=== PATIENT | female | born 1960 | race Caucasian/White ===

== ENCOUNTER → 2016-09-24 | Outpatient (CLI) | payer OTHER | LOC: BRMIMAGING 13:06 | PROVIDERS: ATTEND Family Medicine | DX: Z12.31 Encounter for screening mammogram for malignant neoplasm of breast (principal) | CPT/HCPCS: G0202 ==

== ENCOUNTER → 2017-06-29 | Outpatient (CLI) | payer OTHER | LOC: FIMAGING 19:50 | PROVIDERS: ATTEND Family Medicine | DX: M51.16 Intervertebral disc disorders with radiculopathy, lumbar region (principal); M51.37 Other intervertebral disc degeneration, lumbosacral region; M48.07 Spinal stenosis, lumbosacral region ==

== ENCOUNTER → 2017-07-13 | Outpatient (CLI) | payer OTHER | LOC: BRMIMAGING 13:46 | PROVIDERS: ATTEND Family Medicine | DX: Z01.411 Encounter for gynecological examination (general) (routine) with abnormal findings (principal); K76.0 Fatty (change of) liver, not elsewhere classified | CPT/HCPCS: 76770-PO ==

== ENCOUNTER → 2017-11-10 | Outpatient (CLI) | payer OTHER | LOC: BRMIMAGING 15:18 | PROVIDERS: ATTEND Family Medicine | DX: Z12.31 Encounter for screening mammogram for malignant neoplasm of breast (principal) ==

== ENCOUNTER → 2018-02-22 | Outpatient (CLI) | payer OTHER | LOC: CIMAGING 14:37 | PROVIDERS: ATTEND Orthopaedic Surgery | DX: Z01.818 Encounter for other preprocedural examination (principal); M16.0 Bilateral primary osteoarthritis of hip | CPT/HCPCS: 73700-PO ==

== ENCOUNTER 2018-03-09 05:45 | Inpatient (IN) | payer OTHER ==
[2018-03-09] MEDS ORDERED: POVIDONE-IODINE 20 ML in SODIUM CL IRRIG SOLUTION 500 ML IRR ONE (06:00)
[2018-03-09] MEDS ORDERED: TRANEXAMIC ACID 1,000 MG in NS 100 ML IV ONE (06:00)
[2018-03-09] MEDS ORDERED: ROPIVACAINE 0.2% 80 MG, EPINEPHrine 0.2 MG, KETOROLAC TROMETHAMINE 30 MG in SYRINGE 0 ML IU ONE (06:00)
[2018-03-09] MEDS ORDERED: FAMOTIDINE 20 MG TAB PO ONE (06:10)
[2018-03-09] MEDS ORDERED: ceFAZolin 2 GM/DEXTROSE 100 ML IV ONE (06:10)
[2018-03-09] MEDS ORDERED: DEXAMETHASONE 4 MG/ML VIAL IVP ONE (06:10)
[2018-03-09] MEDS ORDERED: ACETAMINOPHEN 325 MG TAB PO ONE (06:10)
[2018-03-09] MEDS ORDERED: LIDOCAINE 1% 2 ML INJ ID PRN (06:12)
[2018-03-09] MEDS ORDERED: LR 1,000 ML IV ONE (06:12)
[2018-03-09] MEDS ORDERED: BUPIVACAINE/EPI 0.5% 30 ML SDV ONE (06:50)
[2018-03-09] MEDS ORDERED: MIDAZOLAM 2 MG/2 ML VIAL IVP ONE (06:50)
--- NOTE | 2018-03-09 06:50 | PDANEPAE ---
ANE History of Present Illness OA here for NICOLASA ANE Past Medical History - Cardiovascular History Hx Hypertension: Yes Hx Arrhythmias: No Hx Chest Pain: No Hx Coronary Artery / Peripheral Vascular Disease: No Hx CHF / Valvular Disease: No Hx Palpitations: No Cardiovascular History Comment: WELL CONTROLLED BP - Pulmonary History Hx COPD: No Hx Asthma/Reactive Airway Disease: Yes Hx Recent Upper Respiratory Infection: No Hx Oxygen in Use at Home: No Hx Sleep Apnea: No Sleep Apnea Screening Result - Last Documented: Negative Pulmonary History Comment: HAS NOT USED INHALERS IN LONG TIME - Neurologic History Hx Cerebrovascular Accident: No Hx Seizures: No Hx Dementia: No - Endocrine History Hx Diabetes: No Endocrine History Comment: HYPOTHYROID - Renal History Hx Renal Disorders: No - Liver History Hx Hepatic Disorders: No Hepatic History Comment: NON-ALCOHOLIC FATTY LIVER MONITORED & STABLE - Neurological & Psychiatric Hx Hx Neurological and Psychiatric Disorders: Yes Neurological / Psychiatric History Comment: ANXIETY - Cancer History Hx Cancer: No - Congenital Disorder History Hx Congenital Disorders: No - GI History Hx Gastrointestinal Disorders: Yes Gastrointestinal History Comment: ACID REFLUX - Other Health History Other Health History: PSORIASIS - Chronic Pain History Chronic Pain: Yes (L HIP PAIN) - Surgical History Prior Surgeries: APPENDECTOMY ANE Review of Systems Review of Systems: - Exercise capacity METS (RN): 5 METS ANE Patient History - Allergies Allergies/Adverse Reactions: clindamycin Allergy (Verified 03/09/18 06:16) Rash - Home Medications Home Medications: Bupropion HCl [Wellbutrin Xl] 300 mg PO DAILY 02/28/18 [Last Taken 03/09/18 04: 30] Cholecalciferol (Vitamin D3) [Vitamin D3] 5,000 unit PO HS 02/28/18 [Last Taken 03/02/18] Cyclobenzaprine [Cyclobenzaprine HCl] 2.5 mg PO DAILY PRN 02/28/18 [Last Taken 03/04/18] Escitalopram Oxalate [Lexapro] 40 mg PO HS 02/28/18 [Last Taken 03/08/18 22:00] Herbals/Supplements -Info Only 1 ea PO DAILY 02/28/18 [Last Taken 03/02/18] LORazepam [Ativan (*)] 0.25 mg PO DAILY PRN 02/28/18 [Last Taken 03/08/18 22:00] Levothyroxine [Synthroid 112 mcg (*)] 112 mcg PO DAILY06 02/28/18 [Last Taken 04:30] Losartan Potassium [Cozaar 50 mg (*)] 50 mg PO HS 02/28/18 [Last Taken 03/08/18 22:00] Montelukast Sodium [Singulair 10 mg (*)] 10 mg PO DAILY 02/28/18 [Last Taken 04:30] tiZANidine HCL [Zanaflex 2MG (*)] 2 mg PO DAILY PRN 02/28/18 [Last Taken ] Ibuprofen 03/02/18 [Last Taken 02/27/18] Percocet 5/325 (*) 03/02/18 [Last Taken 03/07/18] Ranitidine HCl 03/02/18 [Last Taken 03/07/18] - NPO status NPO Status: no food or drink >8 hours NPO Since - Liquids (Date): 03/09/18 NPO Since - Liquids (Time): 03:00 NPO Since - Solids (Date): 03/08/18 NPO Since - Solids (Time): 20:30 - Anes Hx Anes Hx: no prior problems - Smoking Hx Smoking Status: Never smoked - Alcohol Use Alcohol Use: Rarely - Family Anes Hx Family Anes Hx: none Family Hx Anesthesia Complications: NEG ANE Labs/Vital Signs - Vital Signs Blood Pressure: 148/77 Heart Rate: 68 Respiratory Rate: 16 O2 Sat (%): 93 Height: 165.1 cm Weight: 77.111 kg ANE Physical Exam - Airway Neck exam: FROM Mallampati Score: Class 2 Mouth exam: normal dental/mouth exam - Pulmonary Pulmonary: no respiratory distress, clear to auscultation - Cardiovascular Cardiovascular: regular rate and rhythym, no murmur, rub, or gallop - ASA Status ASA Status: II ANE Anesthesia Plan Anesthesia Plan: GA with mask, spinal Total IV Anesthesia: Yes
--- NOTE | 2018-03-09 06:52 | PDHPUP ---
History & Physical Update H&P update statement: This history and physical update is based on an assessment of the patient which was completed after admission or registration (within 24 hours), but prior to the surgery/procedure. H&P update: H&P reviewed & patient examined, no change in patient's condition since H&P completed
[2018-03-09] MEDS ORDERED: PROPOFOL/EMULSION 500 MG/50 ML BOTTLE IV ONE ×2 (06:57→08:02)
[2018-03-09] MEDS ORDERED: ONDANSETRON 4 MG/2 ML VIAL IVP PRN ×2 (09:29→09:38)
[2018-03-09] MEDS ORDERED: HYDROCODONE/APAP 5/325 TAB PO PRN (09:29)
[2018-03-09] MEDS ORDERED: PROMETHAZINE HCL 25 MG/ML INJ IVP PRN ×2 (09:29→09:38)
[2018-03-09] MEDS ORDERED: NALOXONE HCL 0.4 MG/ML INJ IVP PRN (09:29)
[2018-03-09] MEDS ORDERED: oxyCODONE IR 5 MG TAB PO PRN (09:29)
[2018-03-09] MEDS ORDERED: fentaNYL 100 MCG/2 ML INJ IVP PRN (09:29)
[2018-03-09] MEDS ORDERED: ACETAMINOPHEN 500 MG TAB PO PRN (09:29)
--- NOTE | 2018-03-09 09:30 | POSTANESTH ---
Post Anesthetic Evaluation Cardiovascular Status: Normal, Stable, Similar to Pre-Op Cond Respiratory Status: Normal, Stable, Similar to Pre-op Cond. Level of Consciousness/Mental Status: Can Participate in Eval, Alert and Oriented Pain Control: Adequate, Prn Tx Ordered Nausea/Vomiting Control: Adequate, Prn Tx Ordered Complications Possibly Related to Anesthesia: None Noted
--- NOTE | 2018-03-09 09:37 | POSTOPPROG ---
Post Op Note Date of Operation: 03/09/18 Surgeon: Satish Doshi Medical Assistant: CHENTE Zaragoza Anesthesiologist: MD Lynda Anesthesia: IV Sedation, Spinal Pre-op Diagnosis: left hip osteoarthritis Post-op Diagnosis: same Procedure: left anterior NICOLASA with ANDRES Inf/Abcess present in the surg proc area at time of surgery?: No EBL: 100-500 (300) Drains: Hemovac
[2018-03-09] MEDS ORDERED: DIPHENOXYLATE/ATROPINE LOMOTIL 1 TAB PO PRN (09:38)
[2018-03-09] MEDS ORDERED: ONDANSETRON DISINTEGRATING 4 MG TAB PO PRN (09:38)
[2018-03-09] MEDS ORDERED: diphenhydrAMINE 25 MG CAP PO PRN (09:38)
[2018-03-09] MEDS ORDERED: LACTULOSE 20 GM/30 ML UDCUP PO PRN (09:38)
[2018-03-09] MEDS ORDERED: METOCLOPRAMIDE 10 MG/2 ML VIAL IVP PRN (09:38)
[2018-03-09] MEDS ORDERED: BISACODYL 10 MG SUPP PR PRN (09:38)
[2018-03-09] MEDS ORDERED: MAGNESIUM HYDROXIDE 30 ML UDCUP PO PRN (09:38)
[2018-03-09] MEDS ORDERED: PROMETHAZINE HCL 25 MG SUPPR PR PRN (09:38)
[2018-03-09] MEDS ORDERED: TEMAZEPAM 15 MG CAP PO PRN (09:38)
[2018-03-09] MEDS ORDERED: POLYETHYLENE GLYCOL 3350 17 GM PKT PO PRN (09:38)
[2018-03-09] MEDS ORDERED: LORazepam 0.5 MG TAB PO PRN (09:42)
[2018-03-09] MEDS ORDERED: tiZANidine HCL 2 MG TAB PO PRN (09:42)
[2018-03-09] MEDS ORDERED: LR 1,000 ML IV SCH (10:00)
--- NOTE | 2018-03-09 10:25 | PDMN ---
Medical Necessity Medical necessity: MCG: S560 hip arthoplasty A-2 days: OP: L NICOLASA with ANDRES - MICHELLE # [id number] FOR CPT 16572 DONE IN PT
[2018-03-09] MEDS: ACETAMINOPHEN 325 MG TAB PO SCH ×3 (12:45→23:12)
[2018-03-09] MEDS: CYCLOBENZAPRINE 10 MG TAB PO PRN ×2 (12:45→21:13)
[2018-03-09] MEDS: oxyCODONE IR 5 MG TAB PO PRN ×3 (12:46→20:08)
[2018-03-09] MEDS: ceFAZolin 2 GM/DEXTROSE 100 ML IV SCH ×2 (12:48→20:10)
[2018-03-09] MEDS: ASPIRIN 81 MG CHEWABLE TAB PO SCH (20:07)
[2018-03-09] MEDS: SENNOSIDES/DOCUSATE SODIUM TAB PO SCH (20:11)
[2018-03-09] MEDS ORDERED: CHOLECALCIFEROL VIT D3 2,000 UNITS TAB/CAP PO SCH (21:00)
[2018-03-09] MEDS ORDERED: LOSARTAN POTASSIUM 50 MG TAB PO SCH (21:00)
[2018-03-09] MEDS ORDERED: ESCITALOPRAM OXALATE 10 MG TAB PO SCH (21:00)
[2018-03-10] MEDS: oxyCODONE IR 5 MG TAB PO PRN ×4 (01:20→12:19)
[2018-03-10] MEDS: ACETAMINOPHEN 325 MG TAB PO SCH ×2 (05:13→12:18)
[2018-03-10] MEDS: CYCLOBENZAPRINE 10 MG TAB PO PRN (05:13)
[2018-03-10] MEDS ORDERED: LEVOTHYROXINE 112 MCG TAB PO SCH (06:00)
--- NOTE | 2018-03-10 07:16 | SOAPPROG ---
SOAP Progress Note Assessment/Plan: Assessment: 57-year-old female postop day 1 status post left anterior total hip with Yony Plan: Weight-bearing as tolerated, PT/OT DVT prophylaxis: SCDs, Bryce Hose, aspirin 81 mg twice daily Incentive spirometry 10 times per hour Disposition: Home after physical therapy this morning 03/10/18 07:13 Subjective: No acute events. Pain increased slightly in the last few hours but well controlled. Denies fevers chills nausea vomiting chest pain shortness of breath numbness or tingling. Objective: Vital Signs Temp Pulse Resp BP Pulse Ox 36.8 C 56 L 16 110/74 90 L 03/10/18 04:00 03/10/18 04:00 03/10/18 04:00 03/10/18 04:00 03/10/18 04:00 Laboratory Results 03/10/18 04:36 03/09/18 03/10/18 03/11/18 05:59 05:59 05:59 Intake Total 3900 Output Total 1400 Balance 2500 Awake alert and oriented x3 No acute distress Easy nonlabored breathing Left thigh: Dressing clean dry intact no erythema drainage or signs of infection Mild swelling, no ecchymosis Thigh and calf compartments soft compressible Sensation intact to light touch L4-S1 Motor intact to EHL FHL tibialis anterior gastrocsoleus Palpable DP PT pulses - Pending Discharge Pending Discharge Within 24 Hours: Yes Pending Discharge Date: 03/10/18 Pending Discharge Time: 11:00 ICD10 Worksheet Patient Problems: Problems Problem Status Onset Osteoarthritis of left hip Acute
--- NOTE | 2018-03-10 07:23 | PDIAF ---
- Diagnosis Code Status: Full Code - Medication Management Discharge Medications: electronically signed and located in the Home Medication List. - Orders Services needed: Physical Therapy Diet Recommendation: no restrictions on diet Diet Texture: Regular Texture Diet Wound Care Instructions: Keep Dressing c/d/i until follow-up Activity/Weight Bearing Restrictions: WBAT with assistance Additional Instructions: WBAT with assistance - Follow Up Care Current Providers and Referrals: Satihs Doshi MD [Medical Doctor] - Nirali Newberry MD [Primary Care Provider] -
[2018-03-10] MEDS ORDERED: MONTELUKAST SODIUM 10 MG TAB PO SCH (09:00)
[2018-03-10] MEDS ORDERED: FAMOTIDINE 20 MG TAB PO SCH (09:00)
[2018-03-10] MEDS ORDERED: buPROPion XL 150 MG TAB PO SCH (09:00)
[2018-03-10 12:07] VITALS: BP 118/57
--- NOTE | 2018-03-10 12:12 | ASMTCMCOM ---
CM Note CM Note Notes: Pt medically stable for d/c after planned NICOLASA. PT rec outpatient. Pt to have [facility] PT, orders sent in [employer]. Pt address/phone verified. Date Signed: 03/10/2018 12:11 PM Electronically Signed By:CASANDRA Macias
[2018-03-10] MEDS: ASPIRIN 81 MG CHEWABLE TAB PO SCH (12:19)
[2018-03-10] MEDS: SENNOSIDES/DOCUSATE SODIUM TAB PO SCH (13:05)
--- NOTE | 2018-03-10 16:33 | ASDISCHSUM ---
Discharge Information Plan Status:Home with Home Health Medically Cleared to Leave: Discharge Date:03/10/2018 03:43 PM CM D/C Disposition: ADT D/C Disposition:Home, Routine, Self-Care Projected Discharge Date:03/10/2018 11:00 AM Transportation at D/C: Discharge Delay Reason: Follow-Up Date:03/10/2018 11:00 AM Discharge Slot: Final Diagnosis: Placement Information Referral Type:*Home Health Care Services Referral ID:[id number] Provider Name:[facility] Address 1:[address] [address] Address 2: City:[place] Selection Factors: State:[place] Patient Contact Information Contact Name:MYNOR Relationship:Sister Address: Work Phone: City:[facility] Phone: [facility] Code:[place] Email: Financial Information Financial Class:HMO and PPO Plans Primary Plan Desc:[employer]/POS PPO Primary Plan Number:[id number] Secondary Plan Desc: Secondary Plan Number: Assessment Information [facility] CM Progress Note CM Note CM Note Notes: Pt medically stable for d/c after planned NICOLASA. PT rec outpatient. Pt to have [facility], orders sent in [facility]. Pt address/phone verified. Date Signed: 03/10/2018 12:11 PM Electronically Signed By:CASANDRA Macias Intervention Information
--- NOTE | 2018-03-15 14:37 | GOP ---
DATE OF OPERATION: 03/09/2018 SURGEON: Satish Doshi MD SERVICE ESTABLISHMENT ATTENDANT: Jurgen Zaragoza CSA. Forest Ecologist was required for the procedure due to the complexity of the case and patient's condition fo r positioning, prepping, draping, retraction, and closure. ANESTHESIA: Spinal and IV sedation. PREOPERATIVE DIAGNOSIS: Left hip osteoarthritis. POSTOPERATIVE DIAGNOSIS: Left hip osteoarthritis. PROCEDURE PERFORMED: Left hip anterior approach hip replacement MAKOplasty, robotic guidance, fluoro scopic supervision greater than 1 hour. FINDINGS: SPECIMENS: Femoral head. ESTIMATED BLOOD LOSS: 300 cc. INDICATIONS: Patient has severe hip osteoarthritis that failed to improve with conservative measures , significantly affecting activities of daily living, including walking. The patient would like to p roceed with anterior approach hip replacement using MAKOplasty robotic guidance. After extensive dis cussion of all possible approaches, as well as risks, benefits, pros, cons, expected recovery, and pr ognosis, patient verbalized understanding of the risks and benefits of the procedure and signed infor med consent prior to the procedure. DESCRIPTION OF PROCEDURE: The patient was seen in the holding area. Operative consent and extremity were signed. The patient was taken to the operating room. After smooth induction of spinal anesthe claudette and sedation, patient was placed in supine position on the operating table with the arch table ex tension. Hip and contralateral iliac crest were prepped and draped in usual sterile fashion. The op erative site was confirmed by signature. Time-out was performed. Allergies were reviewed. Antibiot ics and TXA administered. Three pins were placed across the iliac crest and the pelvic array was fixed, as well as visualized b y the robot. Desired incision for the anterior approach on the hip was infiltrated. with 0.25% Izabella ine with epinephrine. Incision was made with a 10 blade and carried through subcutaneous tissue to i dentify the TFL fascia. This was incised in line with the incision, and the TFL was retracted latera lly. The lateral femoral circumflex vessels were coagulated with Aquamantys, and deep TFL fascia was incised and the vastus lateralis clearly exposed. Precapsular fat was excised. A T-shaped capsulot michael was performed and the capsule was preserved for later closure. Femoral checkpoint was fixed into the anterior greater trochanter of the femur. Express registration was completed. The femoral neck cut was then performed based on pretemplate calculations and imaging. The femoral head was excised with a corkscrew. The acetabulum was exposed in standard fashion. The labrum and pulvinar soft tiss ue were excised sharply. The pelvic checkpoint was placed in AIIS. Acetabular registration was perf ormed using the robot. Reaming was then performed using the robot to the desired size. Cup was impa cted into place. Again, with robotic guidance system, good fixation was achieved. The cup was irri gated and dried, and the liner was impacted into place, achieving good locking within the cup. The f emur was then exposed in standard fashion. The femur was broached to desired size. Trial neck and h ead were attached to the hip and the hip was relocated. Length and offset were confirmed using the r obot. The position of all components was also confirmed fluoroscopically. Foot was freed from the t able and stability was confirmed at 45 degrees in maximal flexion and 30 degrees of internal rotatio n. The foot was secured back to the table, externally rotated 90 degrees, extended mcfp to the __ , and stability was again confirmed. Hip was then dislocated, and the femoral trial componen ts were removed and the stem was impacted into place. The trunnion was cleaned and dried and the hea d was impacted down into the trunnion. The wound was copiously irrigated, including the cup, with pu lse lavage and the hip was once again relocated. Component placement was confirmed with fluoroscopy. All checkpoints were removed. The pelvic array was also removed. The wound was copiously irrigate d with sterile solution. Dilute Betadine solution was then irrigated into the wound, allowed to soak for 3 minutes before being irrigated out. Joint cocktail was injected in the soft tissue. The caps ule and indirect were repaired with #1 Vicryl. A drain was placed, exiting distally and l aterally from deep TFL. The wound was then closed in layers with 0 Quill in the TFL fascia and the d eep subcutaneous fat, 3-0 Versa-Michelle in the dermis. The wound was dressed with sterile dressings. Th e patient was safely awakened, taken to recovery room in stable condition. All critical portions of the procedure were performed by , Dr. Doshi. This operative note was created by me, and I was immed iately available for emergency cross-coverage at all times. DRAINS: Hemovac x1. COMPLICATIONS: None. IMPLANTS: Trident II Tritanium acetabular shell, size 48 mm, with a 32 mm 0- degree polyethylene ins ert, Accolade II size 3 stem, 127-degree offset with a 32 mm +0 head. /[id number]/MODL
== END 2018-03-10 15:43 | disposition home or self-care (01) | DRG 470 ==
LOC: F3N 05:45
PROVIDERS: ADMIT Orthopaedic Surgery; ATTEND Orthopaedic Surgery
DX: M16.12 Unilateral primary osteoarthritis, left hip (principal); E03.9 Hypothyroidism, unspecified; I10 Essential (primary) hypertension; Z87.440 Personal history of urinary (tract) infections
CPT/HCPCS: 97116-GP; 97161-GP; 97165-GO; 97535-GO; J0171; J0690; J1100; J1885; J2250; J2405; J2704; J2795